=== PATIENT | male | born 1965 | race Two or more races ===

== ENCOUNTER 2023-03-09 12:30 | Outpatient (OUT) | payer OTHER, SELFPAY ==
--- NOTE | 2023-03-09 12:43 | US_ITS ---
[facility] [place] [id number] Patient Name: EMMA OROPEZA MRN: [id number] date: 1965 Sex: M Assigned Patient Location: RAD Current Patient Location: RAD Accession/Order Number: [id number] Exam Date: 03/09/2023 12:45 Report Date: 03/09/2023 14:44 At the request of: JULIO CHRISTIANSON Procedure: US venous doppler LE LT EXAMINATION: US venous doppler LE LT HISTORY: History Of Deep Vein Thrombosis, Left Leg Pain With Swelling ; leg gave out while walking down stairs COMPARISON: No relevant comparison available. FINDINGS: REGION: Left lower extremity THROMBI: None. COMPRESSIBILITY: Normal compressibility. FLOW: Normal waveform and antegrade flow between 5 and 20 cm/s. OTHER: Heterogeneous, hypoechoic 22 cm long segment within anterior-lateral thigh musculature favoring a hematoma. US/US venous doppler LE LT IMPRESSION: 1. No deep vein thrombus within the left lower extremity. 2. Intramuscular hematoma within anterior lateral thigh extending cephalad from the patella. Electronically authenticated by: ALDEN GERARD Date: 03/09/2023 14:44
== END 2023-03-09 12:31 | disposition home or self-care (01) ==
LOC: RAD 12:36
PROVIDERS: PCP Family Medicine; Visit Provider Nurse Practitioner Family
DX: M79.662 Pain in left lower leg (principal); Z86.718 Personal history of other venous thrombosis and embolism; Z98.890 Other specified postprocedural states; M79.89 Other specified soft tissue disorders; S70.12XA Contusion of left thigh, initial encounter; X58.XXXA Exposure to other specified factors, initial encounter
CPT/HCPCS: 93971

== ENCOUNTER 2023-03-17 08:17 | Outpatient (OUT) | payer OTHER, SELFPAY ==
--- NOTE | 2023-03-17 08:20 | MR_ITS ---
[address] [address] Patient Name: EMMA OROPEZA MRN: [id number] date: 1965 Sex: M Assigned Patient Location: MRI Current Patient Location: MRI Accession/Order Number: [id number] Exam Date: 03/17/2023 08:58 Report Date: 03/17/2023 09:55 At the request of: JULIO CHRISTIANSON Procedure: MR knee LT wo con EXAM: MR knee LT wo con REASON FOR EXAM: Quadriceps Muscle Injury S76.109. TECHNIQUE: Multiplanar, multisequence imaging of the left knee was performed without contrast COMPARISON: No recent relevant imaging. FINDINGS: Laterally, the iliotibial band, fibular collateral ligament, popliteus tendon and biceps tendon are intact. The ACL is intact. The lateral meniscus demonstrates normal morphology with some globular intrasubstance signal, which does not meet MRI criteria for tear. Lateral articular cartilage demonstrates low-grade chondrosis. Medially, the medial collateral ligament is intact. The PCL is intact. The medial meniscus demonstrates normal morphology with globular intrasubstance signal, which does not meet MRI criteria for tear. Intermediate grade chondrosis of the medial compartment. There is complete tear of the superficial and middle lamina of the distal quadriceps tendon. There is proximal retraction of approximately 2.3 cm. The deep lamina appears intact. The patella tendon is intact. Intermediate grade chondrosis of the patellofemoral articular cartilage. The bone marrow signal is without fracture or osteonecrosis. Small moderate joint effusion is present. The remaining regional musculature is without discrete muscle strain or tendon tear. Diffuse subcutaneous edema about the lower extremity is potentially reactive. MR/MR knee LT wo con IMPRESSION: 1. Superimposed on tendinosis, there is high-grade partial tearing of the distal quadriceps tendon. The superficial and minimal lamina are completely torn. The deep lamina appears intact. Proximal retraction of torn fibers of approximately 2.3 cm. 2. Tricompartmental chondrosis, most significant in the medial compartment. 3. Intact menisci, cruciate and collateral ligaments. 4. Joint effusion Electronically authenticated by: CINDY HUANG Date: 03/17/2023 09:55
== END 2023-03-17 08:18 | disposition home or self-care (01) ==
LOC: MRI 08:17
PROVIDERS: PCP Family Medicine; Visit Provider Nurse Practitioner Family
DX: S76.20 Unspecified injury of adductor muscle, fascia and tendon of thigh (principal); S76.112A Strain of left quadriceps muscle, fascia and tendon, initial encounter
CPT/HCPCS: 73721

== ENCOUNTER 2023-03-30 07:52 | Outpatient (RCR) | payer OTHER, SELFPAY | END 2023-06-16 12:04 | disposition home or self-care (01) | LOC: PT 07:52 | PROVIDERS: PCP Family Medicine; Visit Provider Nurse Practitioner Family | DX: S76.109D Unspecified injury of unspecified quadriceps muscle, fascia and tendon, subsequent encounter (principal) | CPT/HCPCS: 97010; 97014; 97035; 97110; 97112; 97140; 97162; 97530 ==

== ENCOUNTER 2025-07-25 20:27 | Emergency (ER) | payer OTHER, SELFPAY ==
--- OUTSIDE RECORDS SUMMARY | 2025-07-11 08:00 | XMS_ITS | Encounter Summary ---
Author Organization [facility] Address [address] [place] [address] Care Team Providers Care Staff Respiratory Therapist Name Role Phone Yvette Bryson MD Primary Care Provider [phone] Horacio Crocker LPN Unavailable Doug Shah MD Unavailable [phone] Encounter Details DateTypeDepartmentCare Team (Latest Contact Info)Kucgbpkbvyg86/25/2025 8:00 AM ESTAncillary Procedure [facility] [address] [place] [address] Acute right-sided low back pain with right-sided sciatica Social History Tobacco UseTypesPacks/DayYears UsedDateSmoking Tobacco: EpcbnxVsrjzoztxn3128 - 2009Smokeless Tobacco: NeverAlcohol UseStandard Drinks/WeekCommentsNot Currently 3 (1 standard drink = 0.6 oz pure alcohol)caffiene intake: 1-2 cups [id number] Health LiteracyAnswerDate RecordedHow often do you need to have someone help you when you read instructions, pamphlets, or other written material from your doctor or pharmacy?Srvtvbrcs57/15/2025Social Connection and Isolation Panel AnswerDate RecordedIn a typical week, how many times do you talk on the phone with family, friends, or neighbors?More than three times a week08/31/2024How often do you get together with friends or relatives?Once a week08/31/2024How often do you attend protestant or rastafari services?1 to 4 times per year08/31/2024 Do you belong to any clubs or organizations such as protestant groups, unions, fraternal or athletic groups, or school groups?No08/31/2024How often do you attend meetings of the clubs or organizations you belong to?Patient declined 08/31/2024re you , , , , never , or living with a partner?Vhozsaw0708/31/2024UDIT-CAnswerDate RecordedQ1: How often do you have a drink containing alcohol?Monthly or less08/31/2024Q2: How many drinks containing alcohol do you have on a typical day when you are drinking?3 or Q3: How often do you have six or more drinks on one occasion?Less than gvjnzki1308/31/2024Overall Financial Resource Strain (CARDIA)AnswerDate RecordedHow hard is it for you to pay for the very basics like food, housing, medical care, and heating?Not very hard08/31/2024PHQ-2AnswerDate RecordedPatient Health Questionnaire-2 Cybcy039[facility] [place] [facility] - Occupational Stress QuestionnaireAnswerDate RecordedDo you feel stress - tense, restless, nervous, or anxious, or unable to sleep at night because your mind is troubled all the time - these days?Only a auydip9808/31/2024Exercise Vital SignAnswerDate RecordedOn average, how many days per week do you engage in moderate to strenuous exercise (like a brisk walk)?5 days08/31/2024On average, how many minutes do you engage in exercise at this level?60 min08/31/2024Hunger Vital SignAnswerDate RecordedWithin the past 12 months, you worried that your food would run out before you got the money to buymore.Never true08/31/2024 Within the past 12 months, the food you bought just didn't last and you didn't have money to get more.Never true08/31/2024PRAPARE - TransportationAnswerDate RecordedIn the past 12 months, has lack of transportation kept you from medical appointments or from getting medications?No08/31/2024In the past 12 months, has lack of transportation kept you from meetings, work, or from getting things needed for daily living?No08/31/2024Housing Stability Vital SignAnswerDate RecordedIn the last 12 months, was there a time when you were not able to pay the mortgage or rent on time?No08/31/2024In the past 12 months, how many times have you moved where you were living?t any time in the past 12 months, were you homeless or living in a chcf (including now)?No08/31/2024Sex and Gender InformationValueDate RecordedSex Assigned at DvgxvOlnx38/29/2025 12:46 PM EDTLegal BjaHgco6210/29/2022 7:19 PM EDTGender IdentityNot on fileSexual OrientationChoose not to qlqajump05/29/2025 12:46 PM EDTdocumented as of this encounter Plan of Treatment DateTypeDepartmentCare Team (Latest Contact Info)Xbwkmrmcwiq59/30/2026 9:20 AM EDTOffice Visit [facility] [address] [place] [address] Doug Shah MD [address] [place] [address] documented as of this encounter Procedures Procedure NamePriorityDate/TimeAssociated DiagnosisCommentsXR LUMBAR SPINE 4+ VIEWS WITH FLEXION GXTQXHYHRPghjapi40/25/2025 8:16 AM EST Acute right-sided low back pain with right-sided sciatica documented in this encounter Results * XR lumbar spine 4+ views w flexion extension (07/11/2025 8:16 AM EST) Anatomical RegionLateralityModalitySpine, L-spineRadiographic ImagingSpecimen (Source)Anatomical Location / LateralityCollection Method / VolumeCollection TimeReceived Time07/11/2025 10:58 AM EST Impressions 07/11/2025 11:14 AM EST No acute osseous abnormality. Degenerative changes of the lumbar spine have mildly progressed since prior examination. ELECTRONICALLY SIGNED BY: Iraj Lewis DO Narrative 07/11/2025 11:14 AM EST EXAMINATION: XR LUMBAR SPINE 4+ VIEWS WITH FLEXION EXTENSION TECHNIQUE: 7 views of the lumbar spine. HISTORY: Low back pain COMPARISONS: Lumbar spine radiographs April 01, 2018 FINDINGS: Anterolisthesis of L4 and L5 of approximately 5 mm that increases to 7 mm with flexion but does notsignificantly changed with extension. Lumbar vertebral body heights are maintained. Mild intervertebral height loss at L5-S1. Facet arthropathy of the lower lumbar spine. No spondylolysis. IVC filternoted Procedure Note Iraj Lewis DO - 07/11/2025 EXAMINATION: XR LUMBAR SPINE 4+ VIEWS WITH FLEXION EXTENSION TECHNIQUE: 7 views of the lumbar spine. HISTORY: Low back pain COMPARISONS: Lumbar spine radiographs April 01, 2018 FINDINGS: Anterolisthesis of L4 and L5 of approximately 5 mm that increases to 7 mmwith flexion but does not significantly changed with extension. Lumbarvertebral body heights are maintained. Mild intervertebral height loss atL5-S1. Facet arthropathy of the lower lumbar spine. No spondylolysis. IVCfilter noted IMPRESSION: No acute osseous abnormality. Degenerative changes of the lumbar spine have mildly progressed sinceprior examination. ELECTRONICALLY SIGNED BY: Iraj Lewis DO Authorizing ProviderResult TypeResult StatusChristy Deedee Briceno NPIMG XR PROCEDURESFinal Result documented in this encounter Visit Diagnoses Diagnosis Acute right-sided low back pain with right-sided sciatica documented in this encounter Care Teams Team MemberRelationshipSpecialtyStart DateEnd Date Yvette Bryson MD [address] [place] [address] PCP - GeneralFamily Medicine12/23/22 Doug Shah MD [address] [address] [place] [address] PCP - Medical [place] [employer]02/09/1812 Horacio Crocker, [place] [address] [place] [address] Licensed Practical NurseFamily Mtgdbgbk32/13/24documented as of this encounter
[2025-07-25 20:29] VITALS: BP 136/79; PULSE 73; TEMP 36.7; O2SAT 97; BMI 30.7
--- NOTE | 2025-07-25 21:02 | CT_ITS ---
The [address] [address] Patient Name: EMMA OROPEZA MRN: [id number] date: 1965 Sex: M Assigned Patient Location: ED.MAIN Current Patient Location: ED.MAIN Accession/Order Number: [id number] Exam Date: 07/25/2025 21:33 Report Date: 07/25/2025 22:20 At the request of: NEGRITA CALL Procedure: CT lumbar spine wo con CT lumbar spine wo con 07/25/2025 9:38 PM History:Lumbar radiculopathy, pain TECHNIQUE: Multi detector CT axial slices of the lumbar spine were obtained without IV contrast. Volumetric acquisition sagittal, coronal, and 3-D reconstructions were performed and reviewed on a separate workstation. CT was performed with one or more of the following dose reduction techniques: Automated exposure control, adjustment of the mA and/or kV according to patient size, or use of iterative reconstruction technique. COMPARISON: None FINDINGS: Lumbar vertebral heights and alignment maintained. Multilevel facet arthropathy noted greatest L4-S1. Moderate severe at this level. Mild disc space narrowing notably L5-S1 with vacuum disc. Mild disc space narrowing at L4-5 less extent. There is grade 1 anterolisthesis L4 on L5 noted 5 mm. L2-3: Facet arthropathy. Degenerative changes of the ligamentum flavum right. Left noted this causes moderate canal narrowing. Minimal disc bulge noted. Moderate neural from narrowing identified. L3-4: Broad-based disc bulge with moderate facet arthropathy causing arwe-me-dhkyqynh canal and foraminal narrowing. L4-5: Anterolisthesis of 5 mm with uncovering the disc and likely broad-based bulge. Advanced facet arthropathy. Ligamentum flavum hypertrophy. This causes severe central canal and likely severe bilateral subarticular recess narrowing, moderate bilateral neural from narrowing at this level. Findings are greatest right. Please correlate with possible bilateral L5 radiculopathy due to the canal and subarticular recess narrowing. L5-S1 there is degenerative disc disease with a left foraminal zone disc osteophyte complex. Bilateral facet arthropathy. There is moderate canal and moderate right subarticular zone effacement. Suspect moderate severe left neural foraminal and subarticular zone effacement, correlate with possible left L5 and S1 radiculopathy. Right foramen and moderately narrowed. CT/CT lumbar spine wo con IMPRESSION: Degenerative changes notably from L4 through S1 with subarticular zone effacement left L4-S1 and left foraminal zone effacement at L5-S1 and right subcuticular zone effacement at L4-5, correlate with bilateral L5 radiculopathy and left S1 radiculopathy. 5 mm anterolisthesis L5 on S1 due to facet arthropathy. Negative acute fracture malalignment. Impression dictated by: Taye Connors M.D. 07/25/2025 10:20 PM Dictation Location: [place] [address] Electronically authenticated by: [id number] Y Date: 07/25/2025 22:20
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
--- OUTSIDE RECORDS SUMMARY | 2025-07-25 21:30 | XMS_ITS | Encounter Summary ---
Author Organization [facility] Address [address] [place] [address] Care Team Providers Care Mixing Picker Tender Name Role Phone Yvette Bryson MD Primary Care Provider [phone] Horacio Crocker LPN Unavailable [phone] Doug Shah MD Unavailable Encounter Details DateTypeDepartmentCare Team (Latest Contact Info)Qlmxixnxcbc58/25/2025Travel Social History Tobacco UseTypesPacks/DayYears UsedDateSmoking Tobacco: [id number] - 2009Smokeless Tobacco: NeverAlcohol UseStandard Drinks/WeekCommentsNot Currently 3 (1 standard drink = 0.6 oz pure alcohol)caffiene intake: 1-2 cups [id number] Health LiteracyAnswerDate RecordedHow often do you need to have someone help you when you read instructions, pamphlets, or other written material from your doctor or pharmacy?Bmlluysoa82/15/2025Social Connection and Isolation Panel AnswerDate RecordedIn a typical week, how many times do you talk on the phone with family, friends, or neighbors?More than three times a week08/31/2024How often do you get together with friends or relatives?Once a week08/31/2024How often do you attend oriental orthodox or judaism services?1 to 4 times per year08/31/2024 Do you belong to any clubs or organizations such as oriental orthodox groups, unions, fraternal or athletic groups, or school groups?No08/31/2024How often do you attend meetings of the clubs or organizations you belong to?Patient declined 08/31/2024re you , , , , never , or living with a partner?Epflebq2508/31/2024UDIT-CAnswerDate RecordedQ1: How often do you have a drink containing alcohol?Monthly or less08/31/2024Q2: How many drinks containing alcohol do you have on a typical day when you are drinking?3 or Q3: How often do you have six or more drinks on one occasion?Less than ezvpaih9708/31/2024Overall Financial Resource Strain (CARDIA)AnswerDate RecordedHow hard is it for you to pay for the very basics like food, housing, medical care, and heating?Not very hard08/31/2024PHQ-2AnswerDate RecordedPatient Health Questionnaire-2 Cxfmn820[facility] [place] [facility] - Occupational Stress QuestionnaireAnswerDate RecordedDo you feel stress - tense, restless, nervous, or anxious, or unable to sleep at night because your mind is troubled all the time - these days?Only a gpkarn2508/31/2024Exercise Vital SignAnswerDate RecordedOn average, how many days [...] were you homeless or living in a alf (including now)?No08/31/2024Sex and Gender InformationValueDate RecordedSex Assigned at FnepfDxou37/29/2025 12:46 PM EDTLegal TxoJttk9210/29/2022 7:19 PM EDTGender IdentityNot on fileSexual OrientationChoose not to xpiwqmsu70/29/2025 12:46 PM EDTdocumented as of this encounter Plan of Treatment DateTypeDepartmentCare Team (Latest Contact Info)Lheipslqqch14/30/2026 9:20 AM EDTOffice Visit [facility] [address] [place] [address] Doug Shah MD [address] [place] [address] documented as of this encounter Visit Diagnoses Not on filedocumented in this encounter Care Teams Team MemberRelationshipSpecialtyStart DateEnd Date Yvette Bryson MD [address] [place] [address] PCP - GeneralFamily Medicine12/23/22 Doug Shah MD [address] [place] [address] PCP - Medical [place] [employer]02/08 Horacio Crocker, EVAN [address] [place] [phone] Licensed Practical NurseFamily Hhvipngw36/13/24documented as of this encounter
--- OUTSIDE RECORDS SUMMARY | 2025-07-25 21:30 | XMS_ITS | Clinical Summary ---
Author Organization [facility] Address [address] [place] [address] Care Team Providers Care Director Of Curriculum And Instruction Name Role Phone Yvette Bryson MD Primary Care Provider [phone] Horacio Crocker LPN Unavailable [phone] Doug Shah MD Unavailable [phone] Allergies No known active allergies Medications MedicationSigDispense QuantityRefillsLast FilledStart DateEnd DateStatus aspirin 81 MG EC tablet Take 1 tablet by mouth DailyActive atorvastatin (Lipitor) 10 MG tablet Take 10 mg by mouth in the morning.Active lisinopril-hydroCHLOROthiazide 20-25 MG tablet Take 1 tablet by mouth Daily4Active verapamil SR (Calan SR) 120 MG ER tablet Take 120 mg by mouth at tmcyzkf0609/10/2023ctive Semaglutide, 2 MG/DOSE, (Ozempic, 2 MG/DOSE,) 8 MG/3ML solution pen-injector Indications:Type 2 diabetes mellitus with hyperglycemia, without long-term current use of insulin (HCC)Inject 2 mg under the skin 1 (one) time per week 9 mL 5Active metFORMIN (Glucophage) 1000 MG tablet Indications:Type 2 diabetes mellitus with hyperglycemia, without long-term current use of insulin (HCC)Take 1 tablet (1,000 mg) by mouth in the morning and 1 tablet (1,000 mg) in the evening. Take with meals. 10 tablet /ctive Semaglutide, 2 MG/DOSE, (Ozempic, 2 MG/DOSE,) 8 MG/3ML solution pen-injector Indications:Type 2 diabetes mellitus with hyperglycemia, without long-term current use of insulin (HCC)Inject 2 mg under the skin 1 (one) time per week 9 mL /Discontinued(Reorder) metFORMIN (Glucophage) 1000 MG tablet Indications:Type 2 diabetes mellitus with hyperglycemia, without long-term current use of insulin (HCC)Take 1 tablet (1,000 mg) by mouth in the morning and 1 tablet (1,000 mg) in the evening. Take with meals. 180 tablet /07/2025Discontinued(Reorder) metFORMIN (Glucophage) 1000 MG tablet Indications:Type 2 diabetes mellitus with hyperglycemia, without long-term current use of insulin (HCC)Take 1 tablet (1,000 mg) by mouth in the morning and 1 tablet (1,000 mg) in the evening. Take with meals. 180 tablet /Discontinued(Reorder) predniSONE (Deltasone) 10 MG tablet Indications:Acute right-sided low back pain with right-sided sciaticaTake 1 tablet (10 mg) by mouth in the morning and 1 tablet (10 mg) before bedtime. Do all this for 5 days. 10 tablet /Expired Active Problems ProblemNoted DateDiagnosed DateType 2 diabetes mellitus, without long-term current use of hpbqzcr0107/19/2024 Assessment & Plan (05/09/2025 7:40 PM EDT): Orders: POCT Glycated hemoglobin, total Semaglutide, 2 MG/DOSE, (Ozempic, 2 MG/DOSE,) 8 MG/3ML solution pen-injector; Inject 2 mg under theskin 1 (one) time per week -Stop metformin. Increase ozempic. Diabetic protocols reviewed. Discussed and updated current management plan. Addressed barriers to care, diet, exercise plan and blood sugar testing. Education provided for medications. Goal A1C <7 and BP <130/80 for suboptimally controlled diabetes. I have encouraged patient to check feet regularly and to see ophthomololgist annually. I have discussed the need for regular testing and follow up. We will recheck an A1C every 3 months and microalbumin yearly. Discussed complications which could include blindness, heart disease and kidney disease. 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 Keep up the great work! Benign essential vlbbxrgkwasz69/26/2020 Assessment & Plan (05/09/2025 7:40 PM EDT): -Discussed current management plan. Goal BP less then 130/80. Discussed heart healthy diet, increase fruits and vegetables, limit salt intake. Encouraged increase physical exercise, try to be as active as possible at least 150 mins per week. Importance of weight management with a goal BMI less then27 discussed. Discussed complications of uncontrolled blood pressure. Patient instructed to monitorBP's 1-2 times a week, keep a log, and bring to next visit. Barriers to care and medication compliance discussed. Patient voices understanding of meds. Ventricular premature beats01/10/2020 Encounters DateTypeDepartmentCare LivjOlzswmsmzbl63/25/2025 8:00 AM ESTAncillary Procedure [facility] [address] [place] [address] Acute right-sided low back pain with right-sided /25/2025Results Follow-Up [facility] [address] [place] [address] Florence Briceno NP XR lumbar spine 4+ views w flexion ggwlqqiem73/25/4996Daewsw07/24/2025 5:00 PM ESTOffice Visit [facility] [address] [place] [phone] Florence Briceno NP Acute right-sided low back pain with right-sided sciatica (Primary Dx)07/10/2025 Bamboo flowsheet [facility] [address] [place] [phone] Florence Briceno NP 07/10/20257737Ztspwz89/17/2025Telephone [facility] [place] [facility] [address] [place] [address] Doug Shah MD Med Iinvky5306/29/2025Refill [facility] [place] [facility] [address] [place] [address] Doug Shah MD Type 2 diabetes mellitus with hyperglycemia, without long-term current use of insulin (HCC)06/28/2025Refill [facility] [place] [facility] [address] [place] [address] Doug Shah MD Type 2 diabetes mellitus with hyperglycemia, without long-term current use of insulin (HCC)06/28/2025Patient Outreach [facility] [address] [place] [address] Horacio Crocker LPN 06/23/2025Orders Only [facility] [address] [place] [phone] Yvette Bryson MD 06/15/2025 9:50 AM EDTOffice Visit [facility] [place] [facility] [address] [place] [address] Doug Shah MD Type 2 diabetes mellitus with hyperglycemia, without long-term current use of insulin (HCC) (Primary Dx); Primary hypertension; Hyperlipemia, mixed; Encounter for dietary consultation; Vitamin D yqrwcpwagy22/30/2025amb flowsheet [facility] [address] [place] [address] Doug Shah MD 06/14/20258122Aqplux73/23/2025 6:00 PM EDTOffice Visit [facility] [address] [place] [address] Aparna Kelly NP Type 2 diabetes mellitus with hyperglycemia, without long-term current use of insulin (HCC) (Primary Dx); Obesity (BMI 30-39.9); Benign essential hypertension ; Mixed trsjqejuuruioq31/23/2025[facility] flowsheet [facility] [address] [place] [phone] Aparna Kelly NP 05/09/2025Travelfrom Last 3 Months Immunizations ImmunizationAdministration DatesNext FusKpbo7410/27/2017Zoster, Recombinant 07/26/2021,05/23/2021 Social History Tobacco UseTypesPacks/DayYears UsedDateSmoking Tobacco: MmparfSlusfalyud9487 - 2009Smokeless Tobacco: Never Tobacco Cessation:Counseling Given: Not Answered Alcohol UseStandard Drinks/WeekCommentsNot Currently3 (1 standard drink = 0.6 oz pure alcohol)caffiene intake: 1-2 cups vqsjeP3975 Health LiteracyAnswerDate RecordedHow often do you need to have someone help you when you read instructions, pamphlets, or other written material from your doctor or pharmacy? Czuinznve98/15/2025Social Connection and Isolation PanelAnswerDate RecordedIn a typical week, how many times do you talk on the phone with family, friends, or neighbors?More than three times a week08/31/2024How often do you get together with friends or relatives?Once a week08/31/2024How often do you attend protestant or christianity services?1 to 4 times per year08/31/2024Do you belong to any clubs or organizations such as protestant groups, unions, fraternal or athletic groups, or school groups?No08/31/2024How often do you attend meetings of the clubs or organizations you belong to?Patient ownhtepq98/15/2025re you , , , , never , or living with a partner?Lpuccij0308/31/2024 AUDIT-CAnswerDate RecordedQ1: How often do you have a drink containing alcohol? Monthly or less08/31/2024Q2: How many drinks containing alcohol do you have on a typical day when you are drinking?3 or Q3: How often do you have six or more drinks on one occasion?Less than fjnzezm2808/31/2024Overall Financial Resource Strain (CARDIA)AnswerDate RecordedHow hard is it for you to pay for the very basics like food, housing, medical care, and heating?Not very hard 08/31/2024PHQ-2AnswerDate RecordedPatient Health Questionnaire-2 Score0 05/09/2025[facility] [place] [facility] - Occupational Stress QuestionnaireAnswerDate RecordedDo you feel stress - tense, restless, nervous, or anxious, or unable to sleep at night because yourmind is troubled all the time - these days?Only a hdyitb2108/31/2024Exercise Vital SignAnswerDate Recorded On average, how many days per week do you engage in moderate to strenuous exercise (like a brisk walk)?5 days08/31/2024On average, how many minutes do you engage in exercise at this level?60 min08/31/2024Hunger Vital SignAnswerDate RecordedWithin the past 12 months, you worried that your food would run out before you got the money to buymore.Never true08/31/2024Within the past 12 months, the food you [...] were you homeless or living in a jail (including now)?No08/31/2024Sex and Gender InformationValueDate RecordedSex Assigned at EnlkmJmcx22/29/2025 12:46 PM EDT Legal PnwFbiy3110/29/2022 7:19 PM EDTGender IdentityNot on fileSexual Orientation Choose not to fswlasij37/29/2025 12:46 PM EDT Last Filed Vital Signs Vital SignReadingTime TakenCommentsBlood Andelicd145/7807/10/2025 4:38 PM EST Wolri994807/10/2025 4:38 PM CUXTbqoaahctxz21.3 ??C (97.3 ??F)07/10/2025 4:38 PM ESTRespiratory Zybe9867 9:54 AM EDTOxygen Ormgcflrjb55%07/10/2025 4:38 PM ESTInhaled Oxygen Concentration--Jxinql94.3 kg (219 lb)07/10/2025 4:38 PM EST Bmbcqr720.3 cm (5' 9 )06/15/2025 9:54 AM EDTBody Mass Index32.341 9:54 AM EDT Plan of Treatment DateTypeDepartmentCare Team (Latest Contact Info)Bvoqbojbthc72/30/2026 9:20 AM EDTOffice Visit [facility] [place] [facility] [address] [place] [phone] Doug Shah MD [address] [place] [address] Health MaintenanceDue DateLast DoneCommentsCT Dehtugeeysfd00/09/1964FIT 1963FOBT1965 2825Scierywebyknk96/09/1964Pneumococcal Vaccine: Pediatrics (0 to 5 Years) and At-Risk Patients (6 to 64 Years) (1 of 2 - PCV)1982 FIT-DNA/11/2017COVID-19 Vaccine ( season)2025 Diabetes: Hemoglobin A1C5005/09/2025, 12/15/2024, 09/02/2024, Additional history existsDiabetes: Urine Protein Rtzuzskou62/17/430474/Influenza Vaccine (#1)2026Postponed from 04/17/2025 (Patient Refused)Diabetes: Retinopathy Hvrwnpahx08, 03/18/20252525Mybchdhsqyo06/14/2031 11/28/2020olorectal Cancer Mdeustslp97/14/2031 Procedures Procedure NamePriorityDate/TimeAssociated DiagnosisCommentsXR LUMBAR SPINE 4+ VIEWS WITH FLEXION WLNLHOURZLkrejrz50/25/2025 8:16 AM EST Acute right-sided low back pain with right-sided sciatica POCT NVJJMRSNcdbizi38/30/2025 9:53 AM EDT Type 2 diabetes mellitus with hyperglycemia, without long-term current use of insulin (HCC) POCT GLYCATED HEMOGLOBIN, FDTODEptgmed55/23/2025 6:04 PM EDT Type 2 diabetes mellitus with hyperglycemia, without long-term current use of insulin (HCC) DIABETIC RETINOPATHY SCREENING - OU - BOTH KUVDHqvdyht89/02/2025 10:44 AM EDT MICROALBUMIN / CREATININE URINE GNXYLLqrlmdi58/17/2025 3:16 PM EST Type 2 diabetes mellitus with hyperglycemia, without long-term current use of insulin (HCC) KOXFLFWYZCCPmciysy77/14/2021 12:00 PM EDT LAB COLOGUARD?? COLON CANCER RFJILRDvomncl39/04/2018 from Last 3 Months or Most Recently Relevant to Health Maintenance Results * XR lumbar spine 4+ views [...] Iraj Lewis DO Authorizing ProviderResult TypeResult StatusChristy A Janak NPIMG XR PROCEDURESFinal Result * POCT glucose manually resulted (06/15/2025 9:53 AM EDT)ComponentValueRef Range Test MethodAnalysis TimePerformed AtPathologist SignatureGlucose Blood, JAQ397 mg/dLSpecimen (Source)Anatomical Location / LateralityCollection Method / VolumeCollection TimeReceived TimeBloodCapillary blood specimen / Unknown 06/15/2025 9:53 AM EDT Narrative Authorizing ProviderResult TypeResult StatusDoug Shah MDPOINT OF CARE TEST ENTER/EDIT ORDERABLESFinal Result * (ABNORMAL) POCT Glycated hemoglobin, total (05/09/2025 6:04 PM EDT)Component ValueRef RangeTest MethodAnalysis TimePerformed AtPathologist Signature Hemoglobin A1C6.1Specimen (Source)Anatomical Location / LateralityCollection Method / VolumeCollection TimeReceived LrvdUwrzmtuwg37/23/2025 6:04 PM EDT Narrative Authorizing ProviderResult TypeResult Romie Kelly NPPOINT OF CARE TEST ENTER/EDIT ORDERABLESFinal Result * Diabetic Retinopathy Screening - OU - Both Eyes (03/18/2025 10:44 AM EDT) Anatomical RegionLateralityModalityHeadOther Narrative Authorizing ProviderResult TypeResult StatusYvette Bryson MDOPHTH PHOTOGRAPHY Final Result * (ABNORMAL) Microalbumin / creatinine, urine ratio (09/02/2024 3:16 PM EST) ComponentValueRef RangeTest MethodAnalysis TimePerformed AtPathologist SignatureCREATININE, RANDOM NBMFO15982 - 320 mg/dLQUESTALBUMIN, URINE4.0See Note: mg/dLQUESTComment: Reference Range: Reference Range Not established ALBUMIN/CREATININE RATIO, RANDOM URINE33(H)<30 mg/g creatQUESTComment: The ADA defines abnormalities in albumin excretion as follows: Albuminuria Category ?Result (mg/g creatinine) Normal to Mildly increased <30 Moderately increased ? 30-299 Severely increased > OR = 300 The ADA recommends that at least two of three specimens collected within a 3-6 month period be abnormal before considering a patient to be within a diagnostic category. Specimen (Source)Anatomical Location / LateralityCollection Method / Volume Collection TimeReceived TimeUrineUrine specimen obtained by clean catch procedure / Xvselqf8309/02/2024 3:16 PM EST09/02/2024 3:17 PM EST Narrative Resulting Agency Comment Performing Organization Information ?Site ID: [id number] ?Name: [facility] ?Address: [address] [place] [address], [address] [place] [id number] ?Director: Keith Pierre MD Authorizing ProviderResult TypeResult Romie Kelly NPLAB URINE ORDERABLES Final ResultPerforming OrganizationAddressCity/State/[facility] CodePhone Number [facility] * Colonoscopy (11/28/2020 12:00 PM EDT)Anatomical RegionLateralityModality EndoscopySpecimen (Source)Anatomical Location / LateralityCollection Method / VolumeCollection TimeReceived Time11/28/2020 12:00 PM EDT Narrative 11/28/2020 12:00 PM EDT PERFORMED AT [facility] LOCATION:[id number] normal Procedure Note CONVERSION, GENERIC - 12/31/2022 PERFORMED AT [facility] LOCATION:[id number] normal Authorizing ProviderResult TypeResult StatusJeshai Bryson MDENDOSCOPY PROCEDURE ORDERABLESFinal Result * Cologuard?? colon cancer screening (04/20/2018)ComponentValueRef RangeTest MethodAnalysis TimePerformed AtPathologist SignatureCOLOGUARD RESULT REPORTABLENegativeNot ApplicableNOMS LEGACY EXTERNAL LABComment: A negative result indicates a lower likelihood that colorectal cancer (CRC) or advanced adenoma (pre-cancer) is present. Periodic colorectal cancer screening is recommended at an interval, and with amethod appropriate for the patient. Test Type: Composite algorithmic analysis of stool DNA-biomarkers with hemoglobin immunoassay. ?? Quantitative values of individual biomarkers are not reportable and are not associated with individual biomarker result reference ranges. Precautions and Limitations: Cologuard is intended for colorectal cancer screening of adults of either sex, 50 years or older, who are at typical average-risk for colorectal cancer. A negative Cologuard test result does not guarantee the absence of colorectal cancer or advanced adenoma (pre-cancer). Patients with a negative Cologuard test result should be advised to continue participating in a colorectal cancer screening program. Cologuard may produce a positive result, even though a colonoscopy may not find colorectal cancer or precancerous polyps. The performance of Cologuard has been established in a cross sectional study (i.e., single point in time). Performance has not been evaluated in adults who have been previously tested with Cologuard or in patients less than 50 years of age. Cologuard has been approved for use by the [place]. FDA. Cologuard performance data in a 10,000 patient pivotal study using colonoscopy as the reference method can be accessed at the following location: www.exactlabs.com/results. ??Additional description of the Cologuard test process, warnings and precautions can be found at www.cologuardtest.com. Rx Only. Specimen (Source)Anatomical Location / LateralityCollection Method / Volume Collection TimeReceived Time04/20/2018 Narrative Authorizing ProviderResult TypeResult StatusAndrerosa maria [place] [facility] ORDERABLESFinal ResultPerforming OrganizationAddressCity/State/ZIP CodePhone Number [facility] from Last 3 Months or Most Recently Relevant to Health Maintenance Insurance Care Teams Team MemberRelationshipSpecialtyStart DateEnd Date Yvette Bryson MD [address] [place] [address] PCP - GeneralFamily Medicine12/23/22 Doug Shah MD [address] [place] [address] PCP - Medical [place] [employer]02/09/1812 Horacio Crocker LPN [address] [place] [address] Licensed Practical NurseFamily Cmikfzcm33/13/24
--- OUTSIDE RECORDS SUMMARY | 2025-07-25 21:30 | XMS_ITS | Clinical Summary ---
Author Organization [facility] Address [address] [place] [address] Care Team Providers Care Lawn Mower Repairer Name Role Phone Alexandr Henry DO Primary Care Provider [phone] Social History Tobacco UseTypesPacks/DayYears UsedDateSmoking Tobacco: Never AssessedSex and Gender InformationValueDate RecordedSex Assigned at BirthNot on fileLegal Sex Male09/02/2012 11:07 PM ESTGender IdentityNot on fileSexual OrientationNot on file Last Filed Vital Signs Vital SignReadingTime TakenCommentsBlood Xjtngaeu761/8806 10:33 AM EDT Nojyg493402/01/2009 10:33 AM PWBWfwjhiyjnkc19.4 ??C (99.3 ??F)02/01/2009 10:33 AM EDTRespiratory Wgek9002 10:33 AM EDTOxygen Saturation--Inhaled Oxygen Concentration--Yxigiq635.5 kg (239 lb 4.8 oz)02/01/2009 10:33 AM ZOSBpnoqv976.6 cm (5' 8.75 )02/01/2009 10:33 AM EDTBody Mass Index35.606 10:33 AM EDT Plan of Treatment Health MaintenanceDue DateLast DoneCommentsCologuard (average risk only) 1963 0942Lumqqlzojwt27/09/1964Colorectal Cancer Gtfowduik65/09/1964FIT (average risk only)1963Hepatitis C Bwdlfiofe97/09/1964DTaP,Tdap,and Td Vaccines (1 - Tdap)1982Pneumococcal Vaccines 50years + (1 of 1 - PCV)2013Zoster Recombinant Vaccines (1 of 2)2013COVID-19 Vaccine (2024- season) 2025Influenza Vaccine (#1)2025Respiratory Syncytial Virus (RSV) or ages 60 years and older (1 - 1-dose 75+ series)2038 Respiratory Syncytial Virus (RSV) ages 0 thru 19 monthsAged OutNo longer eligible based on patient's age to complete this topic Care Teams Team MemberRelationshipSpecialtyStart DateEnd Date Alexandr [place] [address] PCP - Wfxjwzg58/14/11
--- OUTSIDE RECORDS SUMMARY | 2025-07-25 21:30 | XMS_ITS | Encounter Summary ---
Author Organization [facility] Address [address] [place] [address] Care Team Providers Care Machine Fancy Stitcher Name Role Phone Yvette Bryson MD Primary Care Provider [phone] Horacio Crocker LPN Unavailable Doug Shah MD Unavailable Reason for Referral * Rehabilitation - Outpatient (Routine) - Pending ReviewSpecialtyDiagnoses / ProceduresReferred By ContactReferred To ContactPhysical Therapy Diagnoses Acute right-sided low back pain with right-sided sciatica Procedures MA OFFICE/OUTPATIENT [facility])[3] 60 MINUTES Florence Briceno NP [address] [place] [address] Phone: tel: fax: Riccardo Lowry, PT [address] [place] [address] Phone: tel: fax: Referral IDStatusReasonStart DateExpiration DateVisits RequestedVisits [id number] Review Specialty Services Required / Encounter Details DateTypeDepartmentCare Team (Latest Contact Info)Twhhwygfrjo69/25/2025[facility] [address] [place] [phone] Florence Briceno NP [address] [place], [place] [phone] XR lumbar spine 4+ views w flexion extension Social History Tobacco UseTypesPacks/DayYears UsedDateSmoking Tobacco: QsgoijGwfrtiitzi1513 - 2009Smokeless Tobacco: NeverAlcohol UseStandard Drinks/WeekCommentsNot Currently 3 (1 standard drink = 0.6 oz pure alcohol)caffiene intake: 1-2 cups [id number] Health LiteracyAnswerDate RecordedHow often do you need to have someone help you when you read instructions, pamphlets, or other written material from your doctor or pharmacy?Myksbovte95/15/2025Social Connection and Isolation Panel AnswerDate RecordedIn a typical week, how many times do you talk on the phone with family, friends, or neighbors?More than three times a week08/31/2024How often do you get together with friends or relatives?Once a week08/31/2024How often do you attend religious or druze services?1 to 4 times per year08/31/2024 Do you belong to any clubs or organizations such as religious groups, unions, fraternal or athletic groups, or school groups?No08/31/2024How often do you attend meetings of the clubs or organizations you belong to?Patient declined 08/31/2024re you , , , , never , or living with a partner?Zogfxlk9608/31/2024UDIT-CAnswerDate RecordedQ1: How often do you have a drink containing alcohol?Monthly or less08/31/2024Q2: How many drinks containing alcohol do you have on a typical day when you are drinking?3 or Q3: How often do you have six or more drinks on one occasion?Less than rtbswyo0708/31/2024Overall Financial Resource Strain (CARDIA)AnswerDate RecordedHow hard is it for you to pay for the very basics like food, housing, medical care, and heating?Not very hard08/31/2024PHQ-2AnswerDate RecordedPatient Health Questionnaire-2 Tammj630FinD[facility] - Occupational Stress QuestionnaireAnswerDate RecordedDo you feel stress - tense, restless, nervous, or anxious, or unable to sleep at night because your mind is troubled all the time - these days?Only a sbfnxh4208/31/2024Exercise Vital SignAnswerDate RecordedOn average, how many days [...] were you homeless or living in a care home (including now)?No08/31/2024Sex and Gender InformationValueDate RecordedSex Assigned at NspolHnjp61/29/2025 12:46 PM EDTLegal BjwFvjx3010/29/2022 7:19 PM EDTGender IdentityNot on fileSexual OrientationChoose not to vkdsfqap92/29/2025 12:46 PM EDTdocumented as of this encounter Miscellaneous Notes * Result Encounter Note - Florence Obrien NP - 07/11/2025 4:49 PM EST You can write him off work if he still needs it * Telephone Encounter - Mayda Isbell MA - 07/11/2025 4:42 PM EST Gave message- pt states that his back is still flared up and that he is supposed to go back to worktomorrow but he feels that he can't, he wants to know if he needs another office visit- referral placed * Telephone Encounter - Mayda Isbell MA - 07/11/2025 4:41 PM EST ----- Message from Florence Briceno sent at 07/11/2025 3:12 PM EST ----- Let patient know his xray showed mild increase of degenerative changes to lumbar spine would he like to go to PT and if so please put referral in. thanks ----- Message ----- From: Interface, Incoming Img Psone Background Sent: 07/11/2025 11:16 AM EST To: Florence Briceno NP * Result Encounter Note - Florecne Obrien NP - 07/11/2025 3:12 PM EST Let patient know his xray showed mild increase of degenerative changes to lumbar spine would he like to go to PT and if so please put referral in. thanks documented in this encounter Plan of Treatment DateTypeDepartmentCare Team (Latest Contact Info)Qsdcstsmcyv94/30/2026 9:20 AM EDTOffice Visit [facility] [address] [place] [address] Doug Shah MD [address] [place] [address] NameTypePriorityAssociated DiagnosesOrder ScheduleAmbulatory referral to Physical TherapyOutpatient ReferralRoutine Acute right-sided low back pain with right-sided sciatica Expected: 07/11/2025 (Approximate), Expires: 01/08/2026documented as of this encounter Visit Diagnoses Diagnosis Acute right-sided low back pain with right-sided sciatica- Primary documented in this encounter Care Teams Team MemberRelationshipSpecialtyStart DateEnd Date Yvette Bryson MD [address] [place] [address] PCP - GeneralFamily Medicine12/23/22 Doug Shah MD [address] [place] [address] PCP - Medical [place] [employer]02/09/1812 Horacio Crocker, [place] [place] [id number] Licensed Practical NurseFamily Gotmovbv00/13/24documented as of this encounter"
--- OUTSIDE RECORDS SUMMARY | 2025-07-25 21:30 | XMS_ITS | Clinical Summary ---
Author Organization [facility] Address [address] [place] [address] Care Team Providers Care Exterior Designer Name Role Phone Unavailable Primary Care Provider Unavailabl e Allergies No known active allergies Medications MedicationSigDispense QuantityRefillsLast FilledStart DateEnd DateStatus aspirin 81 mg EC tablet Take 1 tablet by mouth in the morning.Active amLODIPine (Norvasc) 10 mg tablet Take 10 mg by mouth in the morning.07/07/2022ctive atorvastatin (Lipitor) 10 mg tablet Take 1 tablet by mouth in the morning.Active metoprolol succinate XL (Toprol-XL) 50 mg 24 hr tablet Take 50 mg by mouth in the morning.07/07/2022ctive lisinopriL-hydrochlorothiazide 20-25 mg tablet Take 1 tablet by mouth in the morning.07/07/2022ctive Social History Tobacco UseTypesPacks/DayYears UsedDateSmoking Tobacco: NeverSmokeless Tobacco: Never Tobacco Cessation:Counseling Given: Not Answered Alcohol UseStandard Drinks/WeekCommentsYes0 (1 standard drink = 0.6 oz pure alcohol)AR Safety & EnvironmentAnswerDate RecordedFear of Current or Ex-Partner Not on file10/08/2023Emotionally AbusedNot on file10/08/2023hysically AbusedNot on file10/08/2023Sexually AbusedNot on file10/08/2023hysically or Sexually AbusedNot on file10/08/2023Sex and Gender InformationValueDate RecordedSex Assigned at BirthNot on fileLegal LxiSuaq6102/12/2022 10:22 PM EDTGender Identity Not on fileSexual OrientationNot on file Last Filed Vital Signs Vital SignReadingTime TakenCommentsBlood Pressure--Pulse--Temperature-- Respiratory Rate--Oxygen Saturation--Inhaled Oxygen Concentration--Pajwdl302 kg (240 lb)04/30/2023 12:29 PM JNXElpraq045.3 cm (5' 9 )03/19/2023 12:34 PM EDTBody Mass Index35.44003/19/2023 12:34 PM EDT Plan of Treatment Health MaintenanceDue DateLast DoneCommentsCT Akcobwpmifgs96/09/1964Colonoscopy 1963Colorectal Cancer Scukvtdoz34/09/1964FIT-DNA1963FIT1965 FOBT1965 7166Frasyvhybaqrq81/09/1964Depression Qodtmxdba23/09/1976COVID-19 Vaccine (2024- season)2025Influenza Vaccine (#1)2025dult Tjyjxor66Zoster MglgacggJtvjvrcun32/10/2021, 05/23/2021HIB VaccinesAged OutNo longer eligible based on patient's age to complete this topic HPV VaccinesAged OutNo longer eligible based on patient's age to complete this topicIPV VaccinesAged OutNo longer eligible based on patient's age to complete this topicMeningococcal B VaccineAged OutNo longer eligible based on patient's age to complete this topicMeningococcal VaccineAged OutNo longer eligible based on patient's age to complete this topicPneumococcal Vaccine: Pediatrics (0 to 5 Years) and At-Risk Patients (6 to 64 Years)Aged OutNo longer eligible based on patient's age to complete this topicRotavirus VaccinesAged OutNo longer eligible based on patient's age to complete this topic Insurance MemberSubscriberPlan / Payer (Effective 2023-Present)Name:Bridger Dixon Sr. Relation to Subscriber:EmployeeName:[employer] Date of :1965 (Home) Address: [address] [place] [id number] Payer ID:[id number] Type:Not on file Address: [address] [facility] [address] [place] [id number]
[2025-07-25] MEDS: KETOROLAC TROMETHAMINE 30 MG/ML VIAL IVP (21:39)
[2025-07-25] MEDS: MORPHINE SULFATE 4 MG/ML VIAL IV (21:41)
[2025-07-25] MEDS: ORPHENADRINE 60 MG/2 ML VIAL IV (21:42)
[2025-07-25] MEDS: LIDOCAINE 5% PATCH 1 PATCH TOPICAL (21:44)
== END 2025-07-25 23:10 | disposition home or self-care (01) ==
PROVIDERS: Emergency Provider Internal Medicine; PCP Family Medicine
DX: M54.16 Radiculopathy, lumbar region (principal); M54.42 Lumbago with sciatica, left side; W00.9XXA Unspecified fall due to ice and snow, initial encounter
CPT/HCPCS: 72131; 76376; 96374; 96375; 99284; J1885; J2270; J2360